=== PATIENT | female | born 1955 | race Caucasian/White ===

== ENCOUNTER 2018-09-14 10:09 | Outpatient (CLI) | payer MEDICARE, SELFPAY ==
[2018-09-14 12:01] LABS: Anion Gap 6.7 mmol/L (3-11); BUN 15 mg/dL (7-18); CO2 31.3 mmol/L (21.0-32.0); CREATININE 0.81 mg/dL (0.55-1.02); Chloride 106 mmol/L (98-107); Glucose 90 mg/dL (70-100); Potassium 4.1 mmol/L (3.5-5.1); Sodium 144 mmol/L (136-145); TSH 3.15 uIU/mL (0.358-3.74)
== END 2018-09-14 10:29 ==
PROVIDERS: PCP Family Medicine; Visit Provider Family Medicine
DX: R53.83 Other fatigue (principal)
CPT/HCPCS: 80048; 84443

== ENCOUNTER → 2019-09-07 08:47 | Outpatient (BNVA) | payer MEDICARE, SELFPAY | PROVIDERS: PCP Family Medicine; Referring Provider Family Medicine; Visit Provider Psychiatry & Neurology Neurology | DX: R20.0 Anesthesia of skin (principal); G62.9 Polyneuropathy, unspecified | CPT/HCPCS: 99204 ==

== ENCOUNTER 2019-09-07 10:04 | Outpatient (CLI) | payer MEDICARE, SELFPAY ==
[2019-09-07 10:26] LABS: HCT 40.9 % (36.0-46.0); HGB 13.3 g/dL (12.0-15.5); Mean Corp. HGB Concentration 32.5 g/dL (32.0-36.0); Mean Corpuscular Volume 89.1 fL (80-95); Mean Platelet Volume 9.5 fL (8.0-11.0); Platelet Count 281 x1000/uL (130-400); RBC 4.59 m/cumm (4.00-5.20); RBC Distribution Width 13.9 % (11.7-14.6); White Blood Cell Count 5.15 k/cumm (4.4-10.8)
[2019-09-07 11:08] LABS: ESR 8 mm/hr (0-30)
[2019-09-07 12:58] LABS: Hemoglobin A1C 5.5 % (3.8-5.6)
[2019-09-07 13:06] LABS: ALT 19 U/L (14-59); AST 15 U/L (15-37); Albumin 4.1 g/dL (3.4-5.0); Alkaline Phosphatase 49 U/L (46-116); Anion Gap 9.6 mmol/L (3-11); BUN 13 mg/dL (7-18); Bilirubin, Total 0.6 mg/dL (0.2-1.0); CO2 27.4 mmol/L (21.0-32.0); CREATININE 0.63 mg/dL (0.55-1.02); Calcium 9.1 mg/dL (8.5-10.1); Chloride 107 mmol/L (98-107); Glucose 93 mg/dL (74-106); Potassium 3.9 mmol/L (3.5-5.1); Sodium 144 mmol/L (136-145); TSH (W/Ref FT4) 4.35 uIU/mL (0.36-3.74); Total Protein 7.1 g/dL (6.4-8.2); Vitamin B12 298 pg/mL (193-986)
[2019-09-07 13:35] LABS: FREE T4 0.96 ng/dL (0.76-1.46)
[2019-09-08 13:45] LABS: Albumin 62.1 % (55.8-66.1); Total Protein 6.9 g/dL (6.3-8.2)
[2019-09-10 08:58] LABS: Methylmalonic Acid 0.16 nmol/mL (<=0.40)
== END 2019-09-07 10:24 ==
PROVIDERS: PCP Family Medicine; Visit Provider Psychiatry & Neurology Neurology
DX: G62.9 Polyneuropathy, unspecified (principal); R73.9 Hyperglycemia, unspecified; R20.0 Anesthesia of skin
CPT/HCPCS: 36415; 80053; 80186; 85027; 85652; 99204; 82607; 83036; 84165; 84439; 84443

== ENCOUNTER → 2020-04-06 09:49 | Outpatient (BNVA) | payer MEDICARE, SELFPAY | PROVIDERS: PCP Family Medicine; Referring Provider Family Medicine; Visit Provider Psychiatry & Neurology Neurology | DX: R20.0 Anesthesia of skin (principal); G62.9 Polyneuropathy, unspecified; R20.2 Paresthesia of skin | CPT/HCPCS: 99213 ==

== ENCOUNTER → 2020-05-03 08:16 | Outpatient (BNVA) | payer MEDICARE, SELFPAY | PROVIDERS: PCP Nurse Practitioner; Referring Provider Family Medicine; Visit Provider Psychiatry & Neurology Neurology | DX: R20.0 Anesthesia of skin (principal); G62.9 Polyneuropathy, unspecified; R20.2 Paresthesia of skin; G56.03 Carpal tunnel syndrome, bilateral upper limbs | CPT/HCPCS: 95911; 95923; 99214 ==

== ENCOUNTER 2020-09-20 04:01 | Outpatient (CLI) | payer MEDICARE, SELFPAY ==
[2020-09-20 10:09] LABS: Hemoglobin A1C 5.6 % (<5.7)
[2020-09-20 11:51] LABS: Calculated LDL 85 mg/dL (<100); Cholesterol 170 mg/dL (<200); HDL Cholesterol 79 mg/dL (40-60); TSH 4.66 uIU/mL (0.36-3.74); Triglyceride 33 mg/dL (<150)
== END 2020-09-20 04:02 | disposition home or self-care (01) ==
LOC: LBO 04:01
PROVIDERS: PCP Nurse Practitioner; Visit Provider Nurse Practitioner
DX: R73.03 Prediabetes (principal); R79.89 Other specified abnormal findings of blood chemistry
CPT/HCPCS: 36415; 80061; 83036; 84443

== ENCOUNTER → 2021-05-02 10:52 | Outpatient (BNVA) | payer MEDICARE, SELFPAY | PROVIDERS: PCP Nurse Practitioner; Referring Provider Nurse Practitioner; Visit Provider Psychiatry & Neurology Neurology | DX: G56.03 Carpal tunnel syndrome, bilateral upper limbs (principal); G62.9 Polyneuropathy, unspecified; R73.9 Hyperglycemia, unspecified | CPT/HCPCS: 99213 ==

== ENCOUNTER 2021-05-25 03:32 | Outpatient (CLI) | payer MEDICARE, SELFPAY ==
[2021-05-25 10:38] LABS: Hemoglobin A1C 5.6 % (<5.7)
[2021-05-25 10:52] LABS: TSH (W/Ref FT4) 4.65 uIU/mL (0.36-3.74); Vitamin B12 427 pg/mL (193-986)
[2021-05-25 11:18] LABS: FREE T4 0.84 ng/dL (0.76-1.46)
[2021-05-28 13:38] LABS: Albumin 63.3 % (55.8-66.1); Total Protein 6.9 g/dL (6.3-8.2)
[2021-05-30 11:54] LABS: Methylmalonic Acid 0.14 nmol/mL (<=0.40)
== END 2021-05-25 03:33 | disposition home or self-care (01) ==
LOC: LBO 03:32
PROVIDERS: PCP Nurse Practitioner; Visit Provider Psychiatry & Neurology Neurology
DX: R73.9 Hyperglycemia, unspecified; R20.0 Anesthesia of skin; G62.9 Polyneuropathy, unspecified
CPT/HCPCS: 36415; 80186; 82607; 83036; 84165; 84439; 84443

== ENCOUNTER 2023-01-08 02:45 | Outpatient (CLI) | payer MEDICARE, SELFPAY ==
[2023-01-08 11:25] LABS: HCT 42.2 % (36.0-46.0); HGB 13.8 g/dL (11.2-15.7); MCH 28.8 pg (27.0-33.0); MCHC 32.7 % (32.0-36.0); MCV 88 fL (80-95); MPV 9.1 fL (8.0-11.0); Platelet Count 240 10^3/uL (130-400); RBC 4.79 10^6/uL (3.93-5.22); RDW 13.4 % (11.7-14.6); RDW-SD 43.4 fL; WBC 6.26 10^3/uL (4.4-10.8)
[2023-01-08 12:07] LABS: Iron 95 ug/dL (50-170); Total Iron Binding Capacity 298 ug/dL (250-450); Transferrin Sat 32 % (15-50)
[2023-01-08 12:31] LABS: ALT 20 U/L (14-59); AST 15 U/L (15-37); Albumin 3.6 g/dL (3.4-5.0); Alkaline Phosphatase 48 U/L (46-116); Anion Gap 7.7 mmol/L (3-11); BUN 14 mg/dL (7-18); Bilirubin, Total 0.6 mg/dL (0.2-1.0); CO2 29.3 mmol/L (21.0-32.0); CREATININE 0.7 mg/dL (0.55-1.02); Calcium 8.8 mg/dL (8.5-10.1); Calculated LDL 138 mg/dL (<100); Chloride 105 mmol/L (98-107); Cholesterol 228 mg/dL (<200); Estimated GFR 93.56 (mL/min/1.73m2); Ferritin 93 ng/mL (8-252); Glucose 96 mg/dL (74-106); HDL Cholesterol 84 mg/dL (40-60); Potassium 4.1 mmol/L (3.5-5.1); Sodium 142 mmol/L (136-145); Total Protein 7.2 g/dL (6.4-8.2); Triglyceride 30 mg/dL (<150)
[2023-01-08 12:41] LABS: Vitamin D 25 Total 45.8 ng/mL (30-100)
[2023-01-08 13:14] LABS: FREE T4 0.75 ng/dL (0.76-1.46)
== END 2023-01-08 02:46 | disposition home or self-care (01) ==
LOC: LBO 02:45
PROVIDERS: PCP Student in an Organized Health Care Education/Training Program; Visit Provider Student in an Organized Health Care Education/Training Program
DX: Z13.220 Encounter for screening for lipoid disorders (principal); E03.9 Hypothyroidism, unspecified; K90.9 Intestinal malabsorption, unspecified; Z86.19 Personal history of other infectious and parasitic diseases; Z92.21 Personal history of antineoplastic chemotherapy
CPT/HCPCS: 36415; 80053; 80061; 82306; 85027; 82728; 83540; 83550; 84439; 84443

== ENCOUNTER 2024-09-24 21:25 | Outpatient (REF) | payer MEDICARE, SELFPAY ==
[2024-09-24 23:05] LABS: TSH (W/Ref FT4) 2.36 uIU/mL (0.36-3.74)
[2024-09-26 10:11] LABS: HIV-1/2 Ag & Ab Screen Negative (Negative)
[2024-09-27 10:17] LABS: Hepatitis C Ab w Rflx HCV PCR Negative (Negative)
[2024-09-27 10:38] LABS: HBs Antibody, Quant <3.1 mIU/mL (See Note); Hep B Surface Ab Negative (See Note); Hepatitis B Core Antibody Negative (Negative); Hepatitis B Surface Antigen Negative (Negative)
== END 2024-09-24 21:26 | disposition home or self-care (01) ==
LOC: LBN 21:25
PROVIDERS: PCP Nurse Practitioner Family; Visit Provider Nurse Practitioner Family
DX: Z11.4 Encounter for screening for human immunodeficiency virus [HIV] (principal); E03.9 Hypothyroidism, unspecified; Z11.59 Encounter for screening for other viral diseases
CPT/HCPCS: 86704; 86706; 86803; 87340; 87389; 84443

== ENCOUNTER 2025-01-31 00:33 | Outpatient (CLI) | payer MEDICARE, SELFPAY ==
--- NOTE | 2025-01-31 07:30 | DI.US_ITS ---
Exam(s) US PELVIS TRANSVAGINAL EXAM: US PELVIS TRANSVAGINAL CLINICAL HISTORY: right pelvic pain,R10.2 TECHNIQUE: Transabdominal and transvaginal imaging was performed using standard protocol. COMPARISON: US RENAL ULTRASOUND (P) from 02/13/2009 FINDINGS: UTERUS: Retroverted cm Endometrium: 2 mm. Trace fluid than the endometrium at the lower uterine segment. Benign endometrial micro calcifications. No focal thickening or polyp.. Myometrium: Unremarkable. Cervix: Unremarkable. OVARIES: Right: Cyst or mass: None. Left: Cyst or mass: None. DOPPLER: Color: Symmetric and uniform flow to both ovaries. No hyperemia. CUL-DE-SAC: Free fluid: None. IMPRESSION: 1. Trace amount of fluid within the endometrium. Retroverted uterus. 2. Unremarkable bilateral ovaries. DATA REPOSITORY:
== END 2025-01-31 00:53 ==
LOC: DI 00:33
PROVIDERS: PCP Nurse Practitioner Family; Visit Provider Family Medicine
DX: R10.2 Pelvic and perineal pain (principal)
CPT/HCPCS: 76830; 76856